=== PATIENT | male | born 1990 | race Caucasian/White ===

== ENCOUNTER 2016-09-08 11:20 | Emergency (ER) | payer SELFPAY ==
[2016-09-08] MEDS ORDERED: DIPH,PERTUS(ACELL)TETVAC-LF 0.5 ML VIAL IM ONE (11:56)
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
[2016-09-08 12:54] VITALS: BP 105/65; PULSE 60; RESP 16; TEMP 98.6
--- NOTE | 2016-09-08 13:22 | XR ---
LEFT FOOT, Views INDICATION: Pain COMPARISON: None FINDINGS: 3 views of the left foot are obtained. Bony structures are intact. Bone mineralization is within normal limits. Joint spaces are preserved. Soft tissues within normal limits. No radio-opaque foreign bodies. IMPRESSION: No acute fracture or subluxation identified.
== END 2016-09-08 12:55 | disposition home or self-care (01) ==
LOC: EC 11:20
DX: S91.25 Open bite of toe with damage to nail (principal); S00.83XA Contusion of other part of head, initial encounter; Z23 Encounter for immunization; Z79.899 Other long term (current) drug therapy; Y04.1XXA Assault by human bite, initial encounter
CPT/HCPCS: 90471; 90715; 99284